=== PATIENT | female | born 1995 | race Asian ===

== ENCOUNTER 2016-11-22 17:20 | Emergency (ER) | payer OTHER ==
[~2016-11-22] VITALS: Ht 162.6 cm; Wt 52.8 kg
[2016-11-22 17:34] VITALS: TEMP 37.2; Ht 162.6 cm; Wt 52.8 kg
[2016-11-22] MEDS ORDERED: DROS3TAB12 PO (18:11)
--- NOTE | 2016-11-22 18:12 | EMERGENCY ROOM VISIT NOTE ---
ED Visit Note First contact with patient: 17:39 CHIEF COMPLAINT: control refill HISTORY OF PRESENT ILLNESS: This 21-year-old female patient presents to the emergency department acute complaints. The patient states she has not taken her control for approximately one month. She previously had a prescription in [place], however has not been able to establish care and get a prescription here in the [place]. She is a [employer] student. The patient states she is sexually active with 1 male partner. She was previously on Gregoria. The patient denies any abdominal pain, abnormal vaginal discharge, abnormal vaginal bleeding, amenorrhea, or other associated symptoms. REVIEW OF SYSTEMS: A 6 system review of systems was performed with positives and pertinent negatives listed in the history of present illness. All other systems were reviewed and are negative. ALLERGIES: None MEDICATIONS: None PMH: None SOCIAL HISTORY: The patient is a [employer] student. She lives locally with her remain. She denies drug, alcohol, tobacco use. PHYSICAL EXAM: VITALS: Vitals are noted on the nurse's note and reviewed by myself. Vital signs stable. GENERAL: This is a 21-year-old [place] female, in no acute distress, nondiaphoretic, well-developed well-nourished. SKIN: The skin was without rashes, erythema, edema, or bruising. There is no tenting of the skin. Capillary reflex less than 2 seconds. HEART: Regular rate and rhythm without murmurs gallops or rubs. LUNGS: Clear to auscultation bilaterally without wheezes, rales or rhonchi. No dullness to percussion. No retractions or accessory muscle use. EMERGENCY DEPARTMENT COURSE: She was seen and evaluated as above. A urine test was ordered and performed. This was negative. The patient was given a prescription for Denise and encouraged to follow up with [facility] in the future for future prescriptions. The patient was discharged home in good condition. DIFFERENTIAL DIAGNOSIS: Intrauterine , ectopic , need for oral contraceptives, sexually transmitted infection, and others DIAGNOSIS: Need for oral contraceptive prescription, high-risk heterosexual behavior DISCHARGE INSTRUCTIONS & TREATMENT: You were given a one-month prescription for your oral control pills. Please follow up with [facility] or another primary care provider in the area for further prescriptions. Urine test in the emergency department was negative. Return to the emergency department for vaginal discharge, abnormal vaginal bleeding, abdominal pain, or other concerning symptoms. Current/Historical Medications Scheduled Drospirenone-Ethinyl Estradiol (Gregoria 28), 1 TAB PO DAILY Allergies Coded Allergies: No Known Allergies (Unverified , 11/22/16) Vital Signs Date Time Temp Pulse Resp B/P (MAP) Pulse Ox O2 Delivery O2 Flow Rate FiO2 11/22/16 18:16 78 10 118/84 98 Room Air 11/22/16 17:34 37.2 74 18 130/86 98 Room Air Laboratory Results Test 11/22/16 17:57 Departure Information Impression Primary Impression: Oral contraception initiation Additional Impressions: Medication refill High risk heterosexual behavior Dispostion Home / Self-Care Condition GOOD Prescriptions Drospirenone-Ethinyl Estradiol (GREGORIA 28) 1 Tab Tab 1 TAB PO DAILY for 28 Days, #28 TAB Prov: Ericka Ponce PA-C 11/22/16 Referrals No Doctor, Assigned (PCP) Patient Instructions Control Pill, My [employer] Additional Instructions You were given a one-month prescription for your oral control pills. Please follow up with [facility] or another primary care provider in the area for further prescriptions. Urine test in the emergency department was negative. Return to the emergency department for vaginal discharge, abnormal vaginal bleeding, abdominal pain, or other concerning symptoms. Problem Qualifiers
[2016-11-22 18:16] VITALS: BP 118/84; PULSE 78; O2SAT 98
== END 2016-11-22 18:24 | disposition home or self-care (01) ==
LOC: C.EDB 17:27 → C.EDD 18:24
DX: Z76.0 Encounter for issue of repeat prescription (principal); Z72.51 High risk heterosexual behavior